=== PATIENT | male | born 1950 | race Caucasian/White ===

== ENCOUNTER 2016-07-27 13:01 | Day surgery (SDC) | payer MEDICARE, BC ==
[2016-07-27] MEDS ORDERED: PROPOFOL 10 MG/ML VIAL IV ONE (14:00)
[2016-07-27] MEDS ORDERED: MIDAZOLAM HCL 2MG/2ML VIAL IV ONE (14:00)
--- NOTE | 2016-07-28 16:10 | Operative Note ---
DATE OF SURGERY: 07/27/2016 REFERRING PROVIDER: Tanmay Clemente DO PREOPERATIVE DIAGNOSIS: Screening. POSTOPERATIVE DIAGNOSES: 1. Includes proximal sigmoid colon polyp. 2. Tortuous and redundant colon. OPERATION: COLONOSCOPY with cold snare polypectomy. Preparation Quality: Good. Estimated Blood Loss: Minimal. Samples Obtained: Sigmoid polyp. PROCEDURE: After informed consent was obtained, the patient was placed in the left lateral decubitus position in the endoscopy suite, sedated and monitored by the Department of Anesthesia. Digital rectal exam was unremarkable. A well-lubricated PCF-180 colonoscope was inserted into the rectum and advanced to the cecum. The colon was tortuous and redundant. He did have some mild bradycardia with a heart rate in the low 40s. He did not require any medical intervention, however. With reduction of sigmoid looping, the heart rate increased into the 50s. The cecum was noted by the ileocecal valve and appendiceal orifice and was unremarkable. The ascending colon, transverse colon, and descending colon were also unremarkable. In the sigmoid colon, there was a 4-5 mm sessile polyp removed with a cold snare with minimal bleeding noted. The remainder of the sigmoid colon and rectum were unrevealing. J-turn views of the anorectum were unremarkable. The endoscope was straightened, the rectal ampulla deflated and the endoscope was removed. RECOMMENDATIONS: Patient should resume his medications and diet. He will require repeat exam in most likely 5 years based on tissue histology. Further recommendations will be forthcoming once tissue histology is available. As always, thank you for allowing me to participate in the health care of your patients. Fede Chan DO CC: Tanmay Clemente DO [facility]ITAL[facility]ada
== END 2016-07-27 15:45 | disposition home or self-care (01) ==
LOC: HOP 13:01
PROVIDERS: ATTEND Internal Medicine Gastroenterology
DX: Z12.11 Encounter for screening for malignant neoplasm of colon (principal); D12.5 Benign neoplasm of sigmoid colon; Q43.8 Other specified congenital malformations of intestine; I10 Essential (primary) hypertension

== ENCOUNTER 2017-05-11 09:31 | Emergency (ER) | payer MEDICARE, BC ==
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
== END 2017-05-11 10:45 | disposition home or self-care (01) ==
LOC: ER 09:31
DX: S01.112A Laceration without foreign body of left eyelid and periocular area, initial encounter (principal); S09.90XA Unspecified injury of head, initial encounter; R42 Dizziness and giddiness; W01.198A Fall on same level from slipping, tripping and stumbling with subsequent striking against other object, initial encounter; Y92.828 Other wilderness area as the place of occurrence of the external cause
CPT/HCPCS: 12011; 70450; 99283; 99284

== ENCOUNTER 2017-05-18 11:52 | Emergency (ER) | payer MEDICARE, BC ==
--- NOTE | 2017-05-18 12:07 | Emergency Department Record ---
History of Present Illness - General Chief Complaint: Suture removal Stated Complaint: SUTURE REMOVAL Time Seen by Provider: 05/18/17 12:02 Source: Patient Mode of arrival: Ambulatory Limitations: No limitations - History of Present Illness Initial Comments: The patient is here for suture removal of sutures placed a week ago. He denies any problems or WILLS's. Complaint: Suture/staple removal - Related Data Allergies Allergy/AdvReac Type Severity Reaction Status Date / Time No Known Drug Allergies Allergy Verified 05/18/17 12:08 Past Medical History - SOCIAL HISTORY Smoking Status: Former smoker Drug Use: None - RESPIRATORY Hx Respiratory Disorders: No - CARDIOVASCULAR Hx Cardio Disorders: Yes Hx Cardiac Cath: Yes Hx Hypertension: Yes - NEURO Hx Neuro Disorders: No - GI Hx GI Disorders: No - Hx Genitourinary Disorders: Yes Hx Bladder Problem: Yes (hesitency) Hx Prostate Problems: Yes (cancer) - ENDOCRINE Hx Endocrine Disorders: No - MUSCULOSKELETAL Hx Musculoskeletal Disorders: Yes Hx Arthritis: Yes - PSYCH Hx Psych Problems: No - HEMATOLOGY/ONCOLOGY Hx Hematology/Oncology Disorders: Yes Hx Cancer: Yes (prostate) Family Medical History Hx Heart Disease: Mother Physical Exam - General General Appearance: Alert, Oriented x3, Cooperative, No acute distress - Head Head exam: Atraumatic, Normocephalic, Normal inspection - Eye Eye exam: negative: Normal appearance (The 4 sutures were removed with no difficulty.) Disposition Disposition: Discharge Clinical Impression: Visit for suture removal Disposition: Home, Self-Care Condition: (2) Stable Instructions: Stitches Removal (ED) Additional Instructions: Return to the ER for any problems. Forms: Patient Portal Access Time of Disposition: 12:07 Quality - Quality Measures Quality Measures: N/A - Blood Pressure Screening View Details: Yes Does Patient Have Any of the Following: No Blood Pressure Classification: Hypertensive Reading Systolic Measurement: 166 Diastolic Measurement: 78 Screening for High Blood Pressure: Patient Exclusion, Hx of HTN [G9744]
== END 2017-05-18 12:11 | disposition home or self-care (01) ==
LOC: ER 11:52
DX: Z48.02 Encounter for removal of sutures (principal)